=== PATIENT | male | born 1995 | race Caucasian/White ===

== ENCOUNTER 2017-10-08 09:48 | Emergency (ER) | payer BC ==
--- NOTE | 2017-10-08 10:14 | EDM.PDOC ---
ED HPI GENERAL MEDICAL PROBLEM - General Chief Complaint: Lower Extremity Injury/Pain Stated Complaint: HURT RT ANKLE Time Seen by Provider: 10/08/17 09:55 Source of Information: Reports: Patient, Family History Limitations: Reports: No Limitations - History of Present Illness INITIAL COMMENTS - FREE TEXT/NARRATIVE: 22-year-old male was running up a icy driveway last night when his leg slipped out sideways and he injured his lower leg and ankle on the right side. Today's unable to bear weight. He has marked swelling and discomfort of the distal lower extremity into the ankle, no foot pain or swelling. No other injury. He is otherwise healthy. Onset: Sudden Severity: Moderate Associated Symptoms: Reports: No Other Symptoms Right Ankle Pain Score (Numeric/FACES): 2 - Related Data Allergies Allergy/AdvReac Type Severity Reaction Status Date / Time No Known Allergies Allergy Verified 10/08/17 09:59 Home Meds: Home Meds NK [No Known Home Meds] 07/21/13 [History] Past Medical History - Past Health History Medical/Surgical History: Denies Medical/Surgical History Social & Family History - Tobacco Use Smoking Status *Q: Unknown Ever Smoked - Alcohol Use Days Per Week of Alcohol Use: 0 - Recreational Drug Use Recreational Drug Use: No Review of Systems - Review of Systems Review Of Systems: See Below Respiratory: Denies: Shortness of Breath Cardiovascular: Denies: Chest Pain GI/Abdominal: Denies: Abdominal Pain Skin: Reports: Bruising ED EXAM, GENERAL - Physical Exam Exam: See Below Exam Limited By: No Limitations General Appearance: Alert, No Apparent Distress Respiratory/Chest: No Respiratory Distress Extremities: Other (Exam is otherwise limited to the lower extremities. The left is normal, the right has swelling, mild ecchymosis and marked tenderness over the distal lower leg especially the lateral malleolus.) Course - Vital Signs Last Recorded V/S: Last Vital Signs Temp 97.4 F 10/08/17 09:56 Pulse 66 10/08/17 09:56 Resp 15 10/08/17 09:56 BP 110/66 10/08/17 09:56 Pulse Ox 100 10/08/17 09:56 - Orders/Labs/Meds Orders: Active Orders 24 hr Category Date Time Status Ankle Min 3V Rt [CR] Stat Exams 10/08/17 10:09 Taken - Re-Assessments/Exams Free Text/Narrative Re-Assessment/Exam: 10/08/17 10:14 An x-ray of the right ankle was obtained. 10/08/17 10:38 X-ray shows a minimally displaced spiral distal fibular fracture. Patient was placed in a walking boot, given crutches and told to recheck with orthopedics in 3-4 days bearing very little if any weight on the injured foot. Departure - Departure Time of Disposition: 11:02 Disposition: Home, Self-Care 01 Condition: Good Clinical Impression: Right fibular fracture Qualifiers: Encounter type: initial encounter Fibula location: lateral malleolus Fracture type: closed Fracture alignment: nondisplaced Qualified Code(s): S82.64XA - Nondisplaced fracture of lateral malleolus of right fibula, initial encounter for closed fracture - Discharge Information Instructions: Ankle Fracture, [id number] Referrals: Lev Owens MD [Primary Care Provider] - Forms: ED Department Discharge Care Plan Goals: Wear boot, support with Micheal wrap, and use crutches the next 4-6 days until rechecked by orthopedics. Elevate the foot when able. Anti-inflammatories should help with pain. - My Orders Last 24 Hours: My Active Orders 10/08/17 10:09 Ankle Min 3V Rt [CR] Stat - Assessment/Plan Last 24 Hours: My Active Orders 10/08/17 10:09 Ankle Min 3V Rt [CR] Stat
[2017-10-08 11:04] VITALS: BP 110/66
--- NOTE | 2017-10-09 09:47 | CR ---
Ankle Min 3V Rt INDICATION: injury COMPARISON: None FINDINGS: 3 views. Nondisplaced spiral fracture distal fibula. No other fractures seen.
== END 2017-10-08 11:03 | disposition home or self-care (01) ==
LOC: JP.ED 09:48
DX: S82.64XA Nondisplaced fracture of lateral malleolus of right fibula, initial encounter for closed fracture (principal); W00.0XXA Fall on same level due to ice and snow, initial encounter; Y92.89 Other specified places as the place of occurrence of the external cause
CPT/HCPCS: 73610-26-RT; 73610-RT; 99284